=== PATIENT | male | born 1975 | race Caucasian/White ===

== ENCOUNTER 2018-04-03 19:48 | Emergency (ER) | payer OTHER ==
[2018-04-03 19:56] VITALS: TEMP 98.3
--- NOTE | 2018-04-03 20:53 | ED ---
General Adult HPI - General Chief complaint: Chest Pain Stated complaint: chest pain Time Seen by Provider: 04/03/18 20:11 Source: patient Mode of arrival: ambulatory Limitations: no limitations - History of Present Illness Initial comments: Dictation was produced using [employer] dictation software. please excuse any grammatical, word or spelling errors. Chief Complaint: 42-year-old male withpast medical history presents with chief complaint of chest pain. History of Present Illness: Patient is a 42-year-old male presents with chief complaint of chest pain. Patient states that he was at work today when he had intermittent symptoms of sharp left-sided chest pain. Denies any exacerbating or mitigating factors. Patient states he's been having symptoms like this over the past year. These episodes would occur intermittently. Patient works in the [employer] business and does a lot of heavy exertional activity. Patient is asymptomatic at this time. He has not seen a doctor in over several years. Patient denies any strong family history of cardiac disease. Denies any history of diabetes, dyslipidemia or hypercholesterolemia. Patient does however his tobacco. The ROS documented in this emergency department record has been reviewed and confirmed by me. Those systems with pertinent positive or negative responses have been documented in the HPI. All other systems are other negative and/or noncontributory. PHYSICAL EXAM: General Impression: Alert and oriented x3, not in acute distress HEENT: Normocephalic atraumatic, extra-ocular movements intact, pupils equal and reactive to light bilaterally, mucous membranes moist. Cardiovascular: Heart regular rate and rhythm, S1&S2 audible, no murmurs, rubs or gallops Chest: Lungs clear to auscultation bilaterally, no rhonchi, no wheeze, no rales Abdomen: Bowel sounds present, abdomen soft, non-tender, non-distended, no organomegaly Musculoskeletal: Pulses present and equal in all extremities, no peripheral edema Motor: Power 5/5 bilaterally, no focal deficits noted Neurological: CN II-XII grossly intact, no focal motor or sensory deficits noted Skin: Intact with no visualized rashes Psych: Normal affect and mood ED course: 42 y Old male presents with atypical chest pain. As upon arrival are within acceptable limits. EKG shows incomplete right bundle branch block. No old EKG for comparison. Chest x-ray unremarkable. Patient's symptoms are consistent with atypical chest pain. No high-risk features. Patient must follow-up with primary care physician upon discharge. EKG interpretation: Ventricular rate 57, sinus bradycardia, OK interval 126, QRS 112, QTC 46. No OK prolongation, no QTC prolongation, no ST or T-wave changes noted. Overall, this EKG is unremarkable - Related Data Home Medications Medication Instructions Recorded Confirmed No Known Home Medications 04/03/18 04/03/18 Allergies Allergy/AdvReac Type Severity Reaction Status Date / Time codeine AdvReac Nausea & Verified 04/03/18 20:36 Vomiting Review of Systems ROS Statement: Those systems with pertinent positive or pertinent negative responses have been documented in the HPI. ROS Other: All systems not noted in ROS Statement are negative. Past Medical History Past Medical History: No Reported History History of Any Multi-Drug Resistant Organisms: None Reported Past Surgical History: No Surgical Hx Reported Past Psychological History: No Psychological Hx Reported Smoking Status: Current every day smoker Past Alcohol Use History: Daily Past Drug Use History: Marijuana General Exam Limitations: no limitations Course Vital Signs 04/03/18 04/03/18 19:53 21:20 Temperature 98.3 F Pulse Rate 56 L 68 Respiratory 18 16 Rate Blood Pressure 164/83 111/63 O2 Sat by Pulse 97 96 Oximetry Disposition Clinical Impression: Chest pain Disposition: HOME SELF-CARE Condition: Fair Is patient prescribed a controlled substance at d/c from ED?: No Referrals: None,Stated [Primary Care Provider] - 1-2 days Time of Disposition: 23:09
[2018-04-03 21:21] VITALS: BP 111/63; PULSE 68; RESP 16
--- NOTE | 2018-04-03 22:31 | XR ---
EXAMINATION TYPE: XR chest 2V DATE OF EXAM: 04/03/2018 COMPARISON: NONE HISTORY: Chest pain TECHNIQUE: Frontal and lateral views of the chest are obtained. FINDINGS: Heart and mediastinum are normal. Lungs are clear. Diaphragm is normal. Bony thorax appear s normal. IMPRESSION: Normal chest
--- NOTE | 2018-04-04 04:33 | CDI ---
Dear Real Sanchez DO: Please do addendum Physical Examination. Thank you, Ramona Burris, Assistant Athletic Trainer. If you have any questions, please contact [facility] at [phone]. [facility]
== END 2018-04-03 23:12 | disposition home or self-care (01) ==
LOC: EC 19:48
DX: R07.9 Chest pain, unspecified (principal); R00.1 Bradycardia, unspecified; I45.10 Unspecified right bundle-branch block; F17.200 Nicotine dependence, unspecified, uncomplicated; Z88.5 Allergy status to narcotic agent
CPT/HCPCS: 71046; 99285